=== PATIENT | female | born 1990 | race Two or more races ===

== ENCOUNTER 2018-11-26 06:35 | Emergency (ER) | payer OTHER ==
[2018-11-26 06:59] VITALS: BMI 24.2
--- NOTE | 2018-11-26 07:12 | PDOC ---
Attending Attestation - Resident Resident Name: Heladio Harmon - ED Attending Attestation I have performed the following: I have examined & evaluated the patient, The case was reviewed & discussed with the resident, I agree w/resident's findings & plan, Exceptions are as noted - HPI HPI: 11/26/18 08:18 28yo at around 13 weeks gestation with an episode of vaginal bleeding this AM. Pt follows with [facility] - had ultrasound on 11/15. Pt denies abd cramping. No dysuria. Passed a small clot this AM. No further bleeding. No f/c. No other complaints. - Physicial Exam PE: 11/26/18 08:19 Gen: aaox3, sinhala speaking female HearT: +s1s2 reg lungs: cta b/l abd: soft, nt/nd +bs ext: no c/c/e - Medical Decision Making 11/26/18 08:19 a/p: 28yo female at 13 weeks gestation with vaginal bleeding x 1 episode today -will send labs -pelvic per the resident, os closed, scant blood in vault, no active bleeding -pt without abd cramping -no active bleeding now -pt [facility] with [facility] -will monitor and reassess -POCUS shows iup with movement, fhr 152
--- NOTE | 2018-11-26 08:11 | PDOC ---
History of Present Illness - General Chief Complaint: Vaginal Bleeding Stated Complaint: 13 WEEKS PREG AND BLEEDING Time Seen by Provider: 11/26/18 07:12 History Source: Patient, Booker Used (ROKT Telephone Booker) Exam Limitations: Language Barrier - History of Present Illness Initial Comments: HPI: 28 y/o female presenting to [facility] ER complaining of spontaneous, non painful vaginal bleeding at approx. 4 am this morning in setting of known 13 weeks . States she observed clotted material in toilet while urinating and subsequently spotted for a short time. Has not required a pad change. Spotting stopped prior to arrival. Denies chest pain, SOB, abd pain, or back pain. Following with [facility] for routine care. Reports normal U/S in recent past. Reports she feels safe in her living situation and in her relationship. Denies concern for personal safety or wellbeing. is currently in [place]. OBGYN Hx: - - LMP August 22 or 2018 - Denies h/o of STD - Denies h/o of abnormal PAP smear, last in August 2018 Medical Hx: - Pt denies past medical history. - Currently taking prescription iron pills. Surgical Hx: - Pt denies past surgical history. Review of Systems: In addition to that documented in the HPI above, the additional ROS was obtained : Constitutional: Denies fevers or chills Head: Denies vision changes ENMT: Denies sore throat CV: Denies chest pain Resp: Denies SOB GI: Denies vomiting, diarrhea, abdominal pain, or lower back pain : Denies painful urination MSK: Denies recent trauma Skin: Denies new rashes Neuro: Denies new numbness or tingling or weakness Endocrine: Denies polyuria Heme: Denies bleeding or bruising Physical Examination: Constitutional: Well-developed, well-nourished adult female in no acute distress or obvious discomfort. Found sitting upright on edge of ARTIST'S REPRESENTATIVE table. Alert and oriented x4. Answered all questions appropriately and completely. Speech was non-labored, non-pressured. Head: Normocephalic. No obvious external signs of trauma. Cardiovascular / Chest: Regular rate and regular rhythm. No murmur, rubs, clicks , or gallops. Peripheral pulses: radial pulses full. No pretibial edema. Respiratory: Breathing unlabored. Equal chest rise and fall. Clear to auscultation bilaterally. No stridor, no wheezing, no rhonchi. Gastrointestinal: abdomen is soft, non-tender, non-distended. Neuro: Alert and oriented. Moving all four extremities spontaneously. Gait normal. Skin: Warm, dry, and intact. : No R or L CVA tenderness. Psych: Affect: appropriate. Mood: normal. Female Pelvic: External genitalia unremarkable. Speculum exam with small amount of clotted material but no active bleeding. Vaginal wall mucosa is unremarkable. Cervix visualized and is unremarkable (closed in appearance without any protruding material). Bimanual exam without cervical motion tenderness, adnexal tenderness or any masses appreciated. RN chaperoned exam. MDM: *Reviewed vital signs, nursing notes, and prior visit documentation (if available). 28 y/o female presenting for small amount of vaginal bleeding that resolved prior to arrival. Reportedly normal course today. Following with OBGYN regularly. Afebrile. Vitals unremarkable for hypotension or tachycardia. Physical exam as described above. POCUS TA exam reassuring IUP with spontaneous movement and heart rate. CBC unremarkable for anemia. CMP unremarkable for significant electrolyte derangement. Beta quant obtained and provided to pt for trending. UA unremarkable for pyuria, nitrites, or leukocyte esterase. Suspect likely physiologic bleeding in . Blood type Rh positive. Rhogam not indicated. Discussed imaging and laboratory results with pt. Answered all questions. Provided return precautions. Pt expressed verbal understanding and agreement with plan to discharge home with outpatient follow up. Provided copies of today s results. Heladio Harmon M.D., PGY2 Emergency Medicine Resident Past History - Past Medical History Allergies/Adverse Reactions: Allergies Allergy/AdvReac Type Severity Reaction Status Date / Time No Known Allergies Allergy Verified 11/26/18 06:59 - Suicide/Smoking/Psychosocial Hx Smoking History: Never smoked *Physical Exam - Vital Signs Last Vital Signs Temp Pulse Resp BP Pulse Ox 98.3 F 81 18 104/66 96 11/26/18 06:54 11/26/18 06:54 11/26/18 06:54 11/26/18 06:54 11/26/18 06:54 ED Treatment Course - LABORATORY CBC & Chemistry Diagram: 11/26/18 07:51 11/26/18 07:51 *DC/Admit/Observation/Transfer Diagnosis at time of Disposition: Bleeding in early - Discharge Dispostion Disposition: HOME Condition at time of disposition: Improved Decision to Admit order: No - Referrals Referrals: Lorna Vaughan DO [Staff Physician] - - Patient Instructions Printed Discharge Instructions: DI for Vaginal Bleeding During Additional Instructions: Hoy te vieron por sangrado vaginal minerva el embarazo. La ecografa de calvert embarazo fue normal. Calvert beb se estaba moviendo y devon un buen latido del corazn. El sangrado fue probablemente maryjane parte normal del embarazo. Debera roz a calvert gineclogo para un examen ms detenido en los prximos 1-2 hubbard. Tendr que llamar para hacer maryjane eliecer. El nmero est incluido en katie paquete. He adjuntado copias de los resultados de hoy al paquete. Llvelo con usted a la eliecer para que calvert mdico pueda revisarlos. Vaya al departamento de emergencias ms cercano si calvert afeccin empeora o si be que necesita maryjane evaluacin de emergencia adicional. You were seen today for vaginal bleeding while . The ultrasound of your was normal. Your baby was moving and had a good heart beat. The bleeding was likely a normal part of . You should see your OBGYN for further examination in the next 1-2 days. You will need to call to make an appointment. The number is included in this packet. I have attached copies of todays results to the packet. Take it with you to the appointment so your doctor can review them. Go to the nearest emergency department if your condition worsens or you feel like you need additional emergency evaluation. Print Language: KINYARWANDA - Post Discharge Activity Forms/Work/School Notes: Back to Work
[2018-11-26 08:26] LABS: BASO % 0.1 % (0-2.0); EOS % 1.7 % (0-4.5); HEMATOCRIT 33.3 % (32.4-45.2); HEMOGLOBIN 11.1 GM/dL (10.7-15.3); LYMPH % 14.2 % (8-40); MCH 29.4 pg (25.7-33.7); MCHC 33.4 g/dl (32.0-36.0); MEAN CELL VOLUME 87.9 fl (80-96); MEAN PLT VOLUME 7.6 fl (7.5-11.1); MONO % 7.6 % (3.8-10.2); NEUT % 76.4 % (42.8-82.8); PLATELET COUNT 309 K/MM3 (134-434); RBC 3.79 M/mm3 (3.60-5.2); RDW 13.6 % (11.6-15.6); WHITE BLOOD COUNT 8.5 K/mm3 (4.0-10.0)
[2018-11-26 08:40] LABS: EPI CELLS 1.9 /HPF (0-5/HPF); HYALINE CASTS 0 /lpf (0-8); URINE APPEARANCE CLEAR; URINE BACTERIA 140.6 /hpf (NEGATIVE); URINE BILIRUBIN NEGATIVE (NEGATIVE); URINE COLOR YELLOW; URINE GLUCOSE (UA) NEGATIVE (NEGATIVE); URINE KETONE NEGATIVE (NEGATIVE); URINE LEUK ESTERASE NEGATIVE (NEGATIVE); URINE NITRITE NEGATIVE (NEGATIVE); URINE PROTEIN NEGATIVE (NEGATIVE); URINE RBC 0 /hpf (0-4); URINE UROBILINOGEN 0.2 mg/dL (0.2-1.0); URINE WBC 2 /hpf (0-5)
[2018-11-26 08:45] LABS: ALBUMIN 3.5 g/dl (3.4-5.0); BILIRUBIN,TOTAL 0.3 mg/dL (0.2-1); CREATININE 0.6 mg/dL (0.55-1.3); POTASSIUM 3.7 mmol/L (3.5-5.1); TOT PROT 7.4 g/dl (6.4-8.2)
[2018-11-26 10:06] VITALS: BP 101/72; PULSE 82; TEMP 98.1
== END 2018-11-26 09:50 | disposition home or self-care (01) ==
LOC: JER 06:35
PROC: BY49ZZZ Ultrasonography of First Trimester, Single Fetus (ICD-10-PCS; principal; 2018-11-26)
DX: O26.891 Other specified pregnancy related conditions, first trimester (principal); O20.8 Other hemorrhage in early pregnancy; Z3A.13 13 weeks gestation of pregnancy
CPT/HCPCS: 36415; 76801-TC; 76815; 80053; 81003; 84702; 85025; 86850; 86900; 86901; 87086; 99283-25

== ENCOUNTER 2018-12-01 23:30 | Emergency (ER) | payer OTHER ==
[2018-12-01 23:39] VITALS: BMI 24.2
--- NOTE | 2018-12-02 00:28 | PDOC ---
History of Present Illness - General Chief Complaint: Vaginal Bleeding Stated Complaint: 14 WEEKS ABDOMINAL PAIN Time Seen by Provider: 12/01/18 23:47 - History of Present Illness Initial Comments: 12/02/18 00:28 28 y/o F currently at 14 weeks presenting to ED with one day of vaginal bleeding. Pt was seen by her OB whereby an U/S revealed anhydramnios. Pt. was informed products of conception would pass naturally and to come to the ED if she experienced any pain. She is experiencing lower abdominal cramping pain which is non-radiating and a 5/10 in severity. The bleeding is accompanied by mucus like discharge. She has passed several clots as well. She denies any fevers, chills, diaphoresis, dysuria, hematuria or cva tenderness. 12/02/18 02:12 12/03/18 23:45 Past History - Past Medical History Allergies/Adverse Reactions: Allergies Allergy/AdvReac Type Severity Reaction Status Date / Time No Known Allergies Allergy Verified 12/01/18 23:38 Home Medications: Ambulatory Orders Methylergonovine Maleate [Methergine] 0.2 mg PO TID #9 tablet 12/02/18 Anemia: Yes COPD: No - Reproductive History (#): 0 Para: 0 Therapeutic (s) & number: No Spontaneous : 0 - Suicide/Smoking/Psychosocial Hx Smoking History: Never smoked Review of Systems - Review of Systems All Other Systems: Reviewed and Negative *Physical Exam - Vital Signs Last Vital Signs Temp Pulse Resp BP Pulse Ox 98.5 F 103 H 18 116/74 99 12/01/18 23:36 12/01/18 23:36 12/01/18 23:36 12/01/18 23:36 12/01/18 23:36 - Physical Exam General Appearance: Yes: Nourished, Appropriately Dressed, Apparent Distress HEENT: positive: EOMI, Normal Voice. negative: Scleral Icterus (R), Scleral Icterus (L) Neck: positive: Trachea midline, Supple Respiratory/Chest: positive: Lungs Clear, Normal Breath Sounds. negative: Chest Tender, Respiratory Distress, Labored Respiration, Crackles, Rales, Wheezing Cardiovascular: positive: Regular Rhythm, Regular Rate, S1, S2. negative: Edema , JVD, Murmur Female Pelvic Exam: positive: vaginal bleeding, other (cervical os open. products of conception already expelled. As well as placenta and several blood clots. ) Gastrointestinal/Abdominal: positive: Normal Bowel Sounds, Soft, Guarding, Tenderness, Other (suprapubic guarding and tenderness) Musculoskeletal: positive: Normal Inspection. negative: CVA Tenderness Extremity: positive: Normal Capillary Refill, Normal Inspection, Normal Range of Motion Integumentary: positive: Normal Color, Dry, Warm. negative: Cyanotic, Clammy, Diaphoresis Neurologic: positive: Fully Oriented, Alert, Normal Mood/Affect, Normal Response ED Treatment Course - LABORATORY CBC & Chemistry Diagram: 12/02/18 01:00 12/02/18 01:42 Medical Decision Making - Medical Decision Making 12/02/18 01:31 28 y/o F currently at 14 weeks presenting to ED with one day of vaginal bleeding due to spontaneous miscarriage. -Products of conception collected and placed in formaldehyde. Sent to lab for evaluation -Pt. sent for TVUS for further evaluation - Pt. is O positive. Rhogam not needed. - quant Hcg, cbc, chem ordered -Tylenol 1000mg for pain. -Clinically the patient looks well, no indications for transfusion and no signs or symptoms of peritonitis. -TVUS - Enlarged uterus filled with echogenic material consistent with an in progress. Clinical correlation advised. -Pt discharged with instructions to follow up with SHEET HEATER within a few days. 12/02/18 01:46 12/03/18 23:51 *DC/Admit/Observation/Transfer Diagnosis at time of Disposition: Miscarriage - Discharge Dispostion Disposition: HOME Condition at time of disposition: Stable Decision to Admit order: No - Prescriptions Prescriptions: Methylergonovine Maleate [Methergine] 0.2 mg PO TID #9 tablet - Referrals Referrals: Lorna Vaughan DO [Staff Physician] - - Patient Instructions Printed Discharge Instructions: DI for Miscarriage Additional Instructions: You were seen in the ED for vaginal bleeding and a miscarriage. Products of conception were sent to the lab. Results will not be available for a few days. you can follow up with medical records for results from testing. Follow up with your Meat Soaker in the next 48 hrs (2days) for follow up Return to the Emergency Department if the following occur. -You have foul-smelling drainage or pus coming from your vagina. -You have heavy vaginal bleeding and soak 2 pads or more in an hour for 2 consecutive hours. -You have severe abdominal pain. -You feel like your heart is beating faster than normal. -You feel extremely weak or dizzy. Te vieron en el servicio de urgencias por sangrado vaginal y un aborto espontneo. Los productos de la concepcin fueron enviados al laboratorio. Los resultados no estarn disponibles por unos hubbard. Puede hacer un seguimiento con los registros mdicos para obtener los resultados de las pruebas. Lucian un seguimiento con bauer gineclogo en las prximas 48 horas (2 hubbard) para el seguimiento Regrese al Departamento de Emergencias si ocurre lo siguiente. -Tiene drenaje maloliente o pus proveniente de bauer vagina. Tiene sangrado vaginal abundante y remoja 2 almohadillas o ms en maryjane hora minerva 2 horas consecutivas. -Tiene dolor abdominal intenso. -Sientes que tu corazn late ms rpido de lo normal. -Te sientes extremadamente dbil o mareado. - Post Discharge Activity Forms/Work/School Notes: Back to Work
--- NOTE | 2018-12-02 01:05 | PDOC ---
Documentation entered by Vanessa Barnes SCRIBE, acting as scribe for Shruti Vasquez DO. Shruti Vasquez DO: This documentation has been prepared by the Molly sommers Xhesika, SCRIBE, under my direction and personally reviewed by me in its entirety. I confirm that the documentation accurately reflects all work, treatment, procedures, and medical decision making performed by me. Attending Attestation - Resident Resident Name: Donavan Bales - ED Attending Attestation I have performed the following: I have examined & evaluated the patient, The case was reviewed & discussed with the resident, I agree w/resident's findings & plan, Exceptions are as noted - HPI HPI: 12/02/18 01:09 The patient is a 28 year old female, , currently 14 weeks with no significant PMH of who presents to the emergency department with 1 day of vaginal bleeding accompanied by mucus discharge and clots. Patient notes she saw her ENGINEER SYSTEMS and her US showed anhydramnios, however, she was advised to come to the ED if she experienced any pain. Patient notes she is endorsing abdominal cramping, 5/10 in severity. The patient denies chest pain, shortness of breath, headache and dizziness. Denies fever, chills, cough, nausea, vomiting, diarrhea and constipation. Denies dysuria, frequency, urgency and hematuria. Allergies: NKDA - Physicial Exam PE: 12/02/18 01:10 GENERAL: Awake, alert, and fully oriented. (+) tearful HEAD: No signs of trauma EYES: PERRLA, EOMI, sclera anicteric, conjunctiva clear ENT: Auricles normal inspection, hearing grossly normal, nares patent, oropharynx clear without exudates. Moist mucosa NECK: Normal ROM, supple, no lymphadenopathy, JVD, or masses LUNGS: Breath sounds equal, clear to auscultation bilaterally. No wheezes, and no crackles HEART: Regular rate and rhythm, normal S1 and S2, no murmurs, rubs or gallops ABDOMEN:(+) suprabupic tenderness. Soft, normoactive bowel sounds. No guarding , no rebound. No masses : (+) actively bleeding. (+) placenta passed during vaginal exam. (+) cervix is opened 2 fingertips, bimanual exam. EXTREMITIES: Normal range of motion, no edema. No clubbing or cyanosis. No cords, erythema, or tenderness NEUROLOGICAL: Cranial nerves II through XII grossly intact. SKIN: Warm, Dry, normal turgor, no rashes or lesions noted. - Medical Decision Making 12/02/18 01:00 I, Dr. Shruti Vasquez, DO, attest that this document has been prepared under my direction and personally reviewed by me in its entirety. I further attest, that it accurately reflects all work, treatment, procedures and medical decision -making performed by me. 12/02/18 01:03 a/p: 28yo female at 14 weeks gestation -told by her UNIVERSITY ADMINISTRATIVE ASSISTANT today that there was no fhr today -pt with vaginal bleeding since earlier this week -pt started to bleed around 4p -pt states lower abd cramping -no lightheaded or dizziness -pt passed poc during vaginal exam - these were collected and will be sent to the lab for cytology -large clots passed -will send labs, beta, tvus -O+ on prior type and screen 3 days ago -will monitor and reassess 12/02/18 01:56 hgb stable chem pending/hcg pending tvus pending 12/02/18 02:12 pt signed out pending beta hcg and tvus findings tylenol given for pain
[2018-12-02 01:24] LABS: HEMOGLOBIN 10.9 GM/dL (10.7-15.3); MEAN CELL VOLUME 87.9 fl (80-96); MONO % 9.9 % (3.8-10.2)
[2018-12-02 01:30] LABS: BASO % 0.6 % (0-2.0); EOS % 1.7 % (0-4.5); HEMATOCRIT 32.9 % (32.4-45.2); LYMPH % 16.2 % (8-40); MCH 29.2 pg (25.7-33.7); MCHC 33.2 g/dl (32.0-36.0); NEUT % 71.6 % (42.8-82.8); PLATELET COUNT 284 K/MM3 (134-434); RBC 3.74 M/mm3 (3.60-5.2); RDW 13.5 % (11.6-15.6); WHITE BLOOD COUNT 9.8 K/mm3 (4.0-10.0)
[2018-12-02] MEDS ORDERED: ACETAMINOPHEN 1000 MG/100 ML VIAL (NON FORMULARY) IVPB ONE (01:45)
[2018-12-02] MEDS ORDERED: ACETAMINOPHEN INJECTION 100 ML IVPB ONE (02:05)
--- NOTE | 2018-12-02 02:11 | PDOC ---
*Physical Exam - Vital Signs Last Vital Signs Temp Pulse Resp BP Pulse Ox 98.5 F 103 H 18 116/74 99 12/01/18 23:36 12/01/18 23:36 12/01/18 23:36 12/01/18 23:36 12/01/18 23:36 ED Treatment Course - LABORATORY CBC & Chemistry Diagram: 12/02/18 01:00 12/02/18 01:42 - ADDITIONAL ORDERS Additional order review: Laboratory Results 12/02/18 01:00 Sodium Cancelled Potassium Cancelled Chloride Cancelled Carbon Dioxide Cancelled Anion Gap Cancelled BUN Cancelled Creatinine Cancelled Est GFR (CKD-EPI)AfAm Cancelled Est GFR (CKD-EPI)NonAf Cancelled Random Glucose Cancelled Calcium Cancelled Total Bilirubin Cancelled AST Cancelled ALT Cancelled Alkaline Phosphatase Cancelled Total Protein Cancelled Albumin Cancelled Beta HCG, Quant Cancelled 12/02/18 01:00 RBC 3.74 MCV 87.9 MCHC 33.2 RDW 13.5 MPV 8.0 Neutrophils % 71.6 Lymphocytes % 16.2 Monocytes % 9.9 Eosinophils % 1.7 Basophils % 0.6 D Medical Decision Making - Medical Decision Making 12/02/18 02:10 Received sign-out from Dr. Bales. -F/u TVUS read -F/u CBC and Quant HCG -Anticipated Dispo: home 12/02/18 03:07 -TVUS suggestive of retained products of conception -Pt with several large clots over past hour, no longer soaking pads -Repeating vitals SPB 94, HR 70s Dispo: home with f/u at SCALE MECHANIC in 24-48 hours REturn precautions discussed, patient verbalized understanding *DC/Admit/Observation/Transfer Diagnosis at time of Disposition: Miscarriage - Discharge Dispostion Disposition: HOME Condition at time of disposition: Stable Decision to Admit order: No - Referrals Referrals: Lorna Vaughan DO [Staff Physician] - - Patient Instructions Printed Discharge Instructions: DI for Miscarriage Additional Instructions: You were seen in the ED for vaginal bleeding and a miscarriage. Products of conception were sent to the lab. Results will not be available for a few days. you can follow up with medical records for results from testing. Follow up with your Moth Proofer in the next 48 hrs (2days) for follow up Return to the Emergency Department if the following occur. -You have foul-smelling drainage or pus coming from your vagina. -You have heavy vaginal bleeding and soak 2 pads or more in an hour for 2 consecutive hours. -You have severe abdominal pain. -You feel like your heart is beating faster than normal. -You feel extremely weak or dizzy. Te vieron en el servicio de urgencias por sangrado vaginal y un aborto espontneo. Los productos de la concepcin fueron enviados al laboratorio. Los resultados no estarn disponibles por unos hubbard. Puede hacer un seguimiento con los registros mdicos para obtener los resultados de las pruebas. Lucian un seguimiento con bauer gineclogo en las prximas 48 horas (2 hubbard) para el seguimiento Regrese al Departamento de Emergencias si ocurre lo siguiente. -Tiene drenaje maloliente o pus proveniente de bauer vagina. Tiene sangrado vaginal abundante y remoja 2 almohadillas o ms en maryjane hora minerva 2 horas consecutivas. -Tiene dolor abdominal intenso. -Sientes que tu corazn late ms rpido de lo normal. -Te sientes extremadamente dbil o mareado. - Post Discharge Activity
[2018-12-02 02:31] LABS: ALBUMIN 3.2 g/dl (3.4-5.0); BILIRUBIN,TOTAL 0.3 mg/dL (0.2-1); BLOOD UREA NITROGEN 5.2 mg/dL (7-18); CALCIUM 8.6 mg/dL (8.5-10.1); CREATININE 0.5 mg/dL (0.55-1.3); POTASSIUM 4.2 mmol/L (3.5-5.1)
[2018-12-02 03:15] VITALS: BP 94/65; PULSE 78; TEMP 98.4
--- NOTE | 2018-12-02 03:36 | PDOC ---
*Physical Exam - Vital Signs Last Vital Signs Temp Pulse Resp BP Pulse Ox 98.4 F 78 18 94/65 99 12/02/18 03:14 12/02/18 03:14 12/02/18 03:14 12/02/18 03:14 12/02/18 03:14 ED Treatment Course - LABORATORY CBC & Chemistry Diagram: 12/02/18 01:00 12/02/18 01:42 - ADDITIONAL ORDERS Additional order review: Laboratory Results 12/02/18 12/02/18 01:42 01:00 Sodium 140 Cancelled Potassium 4.2 Cancelled Chloride 108 H Cancelled Carbon Dioxide 24 Cancelled Anion Gap 7 L Cancelled BUN 5.2 L Cancelled Creatinine 0.5 L Cancelled Est GFR (CKD-EPI)AfAm 152.65 Cancelled Est GFR (CKD-EPI)NonAf 131.71 Cancelled Random Glucose 105 Cancelled Calcium 8.6 Cancelled Total Bilirubin 0.3 Cancelled AST 19 Cancelled ALT 22 Cancelled Alkaline Phosphatase 77 Cancelled Total Protein 7.0 Cancelled Albumin 3.2 L Cancelled Beta HCG, Quant 06231.4 Cancelled 12/02/18 01:00 RBC 3.74 MCV 87.9 MCHC 33.2 RDW 13.5 MPV 8.0 Neutrophils % 71.6 Lymphocytes % 16.2 Monocytes % 9.9 Eosinophils % 1.7 Basophils % 0.6 D - Medications Given in the ED: ED Medications Discontinued Medications Generic Name Dose Route Start Last Admin Trade Name Freq PRN Reason Stop Dose Admin Acetaminophen 1,000 mg 12/02/18 01:45 12/02/18 02:15 Ofirmev Injection - IVPB 12/02/18 01:46 1,000 mg ONCE ONE Administration Medical Decision Making - Medical Decision Making 12/02/18 03:32 TVUS with possible RPOC VS stable Bleeding has stopped Exam inconsistent with infection, endometritis, no foul discharge Expectant management of RPOC Close CAREER RESOURCE SPECIALIST f/u 48h *DC/Admit/Observation/Transfer Diagnosis at time of Disposition: Miscarriage - Discharge Dispostion Disposition: HOME Condition at time of disposition: Stable - Referrals Referrals: Lorna Vaughan DO [Staff Physician] - - Patient Instructions Printed Discharge Instructions: DI for Miscarriage Additional Instructions: You were seen in the ED for vaginal bleeding and a miscarriage. Products of conception were sent to the lab. Results will not be available for a few days. you can follow up with medical records for results from testing. Follow up with your Second Crusher in the next 48 hrs (2days) for follow up Return to the Emergency Department if the following occur. -You have foul-smelling drainage or pus coming from your vagina. -You have heavy vaginal bleeding and soak 2 pads or more in an hour for 2 consecutive hours. -You have severe abdominal pain. -You feel like your heart is beating faster than normal. -You feel extremely weak or dizzy. Te vieron en el servicio de urgencias por sangrado vaginal y un aborto espontneo. Los productos de la concepcin fueron enviados al laboratorio. Los resultados no estarn disponibles por unos hubbard. Puede hacer un seguimiento con los registros mdicos para obtener los resultados de las pruebas. Lucian un seguimiento con bauer gineclogo en las prximas 48 horas (2 hubbard) para el seguimiento Regrese al Departamento de Emergencias si ocurre lo siguiente. -Tiene drenaje maloliente o pus proveniente de bauer vagina. Tiene sangrado vaginal abundante y remoja 2 almohadillas o ms en maryjane hora minerva 2 horas consecutivas. -Tiene dolor abdominal intenso. -Sientes que tu corazn late ms rpido de lo normal. -Te sientes extremadamente dbil o mareado. - Post Discharge Activity
[2018-12-02 12:54] LABS: ANISOCYTOSIS 0; MACROCYTOSIS 0; PLATELET ESTIMATE NORMAL
== END 2018-12-02 03:51 | disposition home or self-care (01) ==
LOC: JER 23:30
PROC: 3E033NZ Introduction of Analgesics, Hypnotics, Sedatives into Peripheral Vein, Percutaneous Approach (ICD-10-PCS; principal; 2018-12-01)
DX: O03.9 Complete or unspecified spontaneous abortion without complication (principal); Z3A.14 14 weeks gestation of pregnancy
CPT/HCPCS: 36415; 76830-TC; 80053; 84702; 85025; 99283-25; J0131

== ENCOUNTER 2018-12-02 05:14 | Emergency (ER) | payer OTHER ==
[2018-12-02 05:30] VITALS: TEMP 99.4; BMI 24.2
[2018-12-02] MEDS ORDERED: ONDANSETRON 4 MG/2 ML VIAL IVPUSH ONE (06:10)
[2018-12-02] MEDS ORDERED: SODIUM CHLORIDE 1,000 ML IV STA (06:10)
--- NOTE | 2018-12-02 06:11 | PDOC ---
Attending Attestation - Resident Resident Name: Marco Verdugo - ED Attending Attestation I have performed the following: I have examined & evaluated the patient, The case was reviewed & discussed with the resident, I agree w/resident's findings & plan, Exceptions are as noted - HPI HPI: 12/02/18 06:15 28F 14w preg was seen earlier in the evening for vaginal bleeding in context of . TVUS showed RPOC but bleeding had resolved, no signs/ symptoms of infection, vitals signs normal. PT was discharged with expectant management of RPOC, given strict return precautions. After discharge, pt states she began bleeding again heavily, noting associated light headedness. - Physicial Exam PE: 12/02/18 07:07 Agree with exam as documented by resident Copious BRB and clots in diaper - Medical Decision Making 12/02/18 06:17 Patient was seen earlier in the night and evaluated for VB in context of , TVUS showed RPOC DC'ed with expectant management After dc pt had recurrence of bleeding, felt lightheaded and returned to ED Called patient's [facility]VEL REGISTERED NURSE ONCOLOGY spoke with covering physician Dr. Padilla She recommended repeat CBC, monitor vitals, give dose of methergine If no anemia, remains hemodynamically stable, can be sent to clinic which opens at 9am If any derangement please re-contact [facility] NURSE ONCOLOG[facility] for final dispo
[2018-12-02] MEDS ORDERED: ONDANSETRON 4 MG/2 ML VIAL ONE (06:14)
--- NOTE | 2018-12-02 06:14 | PDOC ---
History of Present Illness - General Chief Complaint: Syncope/Near Syncope Stated Complaint: ABDOMINAL PAIN,BLEEDING History Source: Patient, Family Exam Limitations: No Limitations - History of Present Illness Initial Comments: 12/02/18 06:09 28yo woman, recently seen in the department with spontaneous with open cervical os and TVUS suggestive of retained products of conception. Discharged home with return precautions. Reportedly began to feel lightheaded and "like she was going to pass out" shortly after leaving and decided to return to the department. Passed some additional clot in the interim. HDS on arrival. PMH/PSH/Meds per chart NKDA Past History - Travel Traveled outside of the country in the last 30 days: No Close contact w/someone who was outside of country & ill: No - Past Medical History Allergies/Adverse Reactions: Allergies Allergy/AdvReac Type Severity Reaction Status Date / Time No Known Allergies Allergy Verified 12/01/18 23:38 Home Medications: Ambulatory Orders Methylergonovine Maleate [Methergine] 0.2 mg PO TID #9 tablet 12/02/18 Anemia: Yes COPD: No - Reproductive History (#): 1 Para: 0 Therapeutic (s) & number: No Spontaneous : 1 - Suicide/Smoking/Psychosocial Hx Smoking History: Never smoked Have you smoked in the past 12 months: No Information on smoking cessation initiated: No Hx Alcohol Use: No Drug/Substance Use Hx: No Review of Systems - Review of Systems Able to Perform ROS?: Yes Is the patient limited Tongan proficient: No Constitutional: Yes: See HPI HEENTM: No: Symptoms Reported Respiratory: No: Symptoms reported Cardiac (ROS): Yes: See HPI, Lightheadedness ABD/GI: No: Symptoms Reported : No: Symptoms Reported Musculoskeletal: No: Symptoms Reported Integumentary: No: Symptoms Reported Neurological: No: Symptoms reported *Physical Exam - Vital Signs Last Vital Signs Temp Pulse Resp BP Pulse Ox 99.4 F 88 20 104/62 100 12/02/18 05:27 12/02/18 05:27 12/02/18 05:27 12/02/18 05:27 12/02/18 05:27 - Physical Exam General Appearance: Yes: Nourished, Appropriately Dressed. No: Apparent Distress HEENT: positive: Normal ENT Inspection, Normal Voice, Symmetrical. negative: Pale Conjunctivae, Scleral Icterus (R), Scleral Icterus (L) Neck: positive: Trachea midline, Normal Thyroid, Supple. negative: Tender Respiratory/Chest: positive: Lungs Clear, Normal Breath Sounds. negative: Chest Tender, Respiratory Distress, Accessory Muscle Use Cardiovascular: positive: Regular Rhythm, Regular Rate, S1, S2 Gastrointestinal/Abdominal: positive: Normal Bowel Sounds, Soft. negative: Tender Neurologic: positive: information writer II-XII NML intact, Alert, Normal Response ED Treatment Course - LABORATORY CBC & Chemistry Diagram: 12/02/18 06:21 Medical Decision Making - Medical Decision Making 12/02/18 06:21 28yo woman presenting for lightheadedness in the setting of spontaneous with possible retained products of conception on TVUS in the department overnight. Hypodermically stable. Expected progression of blood clot. Concern for blood loss. Repeat CBC, zofran for nausea, IVF bolus. Reach out to OBGYN. 12/02/18 06:[address] Padilla on the phone. She recommended reiterating the counseling provided, double check HCT, enure stable vitals, give IM Methergine then discharge with 3 days TID Methergine and advise patient that the office is open at 9AM today. -CBC pending -IVF given -BP stable -Will CTM vitals -0.2mg IM Metherergine ordered 12/02/18 07:08 -Reiterated return precautions as well as expectations with the pt -Signed out to Dr. Fox *DC/Admit/Observation/Transfer Diagnosis at time of Disposition: Miscarriage - Discharge Dispostion Disposition: HOME Condition at time of disposition: Good Decision to Admit order: No - Prescriptions Prescriptions: Methylergonovine Maleate [Methergine] 0.2 mg PO TID #9 tablet - Referrals Referrals: Lorna Vaughan DO [Staff Physician] - - Patient Instructions Printed Discharge Instructions: DI for Syncope in Adults (Fainting) - Post Discharge Activity
[2018-12-02] MEDS ORDERED: METHYLERGONOVINE MALEATE 0.2 MG/1 ML AMP IM ONE (06:41)
[2018-12-02 06:52] LABS: BASO % 0.2 % (0-2.0); MCH 29.6 pg (25.7-33.7); MCHC 33.8 g/dl (32.0-36.0)
--- NOTE | 2018-12-02 07:15 | PDOC ---
*Physical Exam - Vital Signs Last Vital Signs Temp Pulse Resp BP Pulse Ox 99.4 F 88 20 104/62 100 12/02/18 05:27 12/02/18 05:27 12/02/18 05:27 12/02/18 05:27 12/02/18 05:27 ED Treatment Course - LABORATORY CBC & Chemistry Diagram: 12/02/18 06:21 - Medications Given in the ED: ED Medications Discontinued Medications Generic Name Dose Route Start Last Admin Trade Name Kasia PRN Reason Stop Dose Admin Sodium Chloride 1,000 mls @ 1,000 mls/hr 12/02/18 06:10 12/02/18 06:25 Normal Saline - IV 12/02/18 07:09 1,000 mls/hr ASDIR STA Administration Ondansetron HCl 4 mg 12/02/18 06:10 12/02/18 06:24 Zofran Injection IVPUSH 12/02/18 06:11 4 mg NOW ONE Administration Medical Decision Making - Medical Decision Making Pt was signed out to me by resident Dr. Verdugo, who explained the presentation , ED course, any pending results, and needed interventions. Pending results include CBC to monitor H/H from last night, as pt was bleeding. Pt is currently stable and is lying comfortably. She was provided with methergine (called from the pharmacy), and has a clinic appointment with Dr. Vaughan/Valerie at 9am for immediate follow-up. 12/02/18 07:13 H/H stable. Provided 2 mg IV morphine and 650 mg PO tylenol for cramping pain. Pt will be discharged to immediate f/u with OB. Pt with mild vaginal bleeding but no large clots or light-headedness at this time. 12/02/18 08:41 *DC/Admit/Observation/Transfer Diagnosis at time of Disposition: Miscarriage - Discharge Dispostion Disposition: HOME Condition at time of disposition: Good Decision to Admit order: No - Prescriptions Prescriptions: Methylergonovine Maleate [Methergine] 0.2 mg PO TID #9 tablet - Referrals Referrals: Lorna Vaughan DO [Staff Physician] - - Patient Instructions Printed Discharge Instructions: DI for Syncope in Adults (Fainting), DI for Miscarriage Additional Instructions: You were seen in the ER today for vaginal bleeding. Please follow-up with your OB doctor immediately following this visit. Please return to the ER if you have any worsening pain, development of fevers or chills, loss of consciousness, inability to tolerate food or fluids, or any other concerns. I have sent medications to your pharmacy. Please take these medications as prescribed. - Post Discharge Activity
[2018-12-02 07:17] LABS: EOS % 0.7 % (0-4.5); HEMATOCRIT 29.7 % (32.4-45.2); LYMPH % 10.9 % (8-40); MEAN CELL VOLUME 87.4 fl (80-96); MONO % 6.2 % (3.8-10.2); RDW 13.4 % (11.6-15.6); WHITE BLOOD COUNT 10.8 K/mm3 (4.0-10.0)
[2018-12-02] MEDS ORDERED: ACETAMINOPHEN 325 MG TABLET (FP) PO ONE (08:14)
[2018-12-02 08:38] LABS: PLATELET COUNT 303 K/MM3 (134-434)
[2018-12-02] MEDS ORDERED: morphine CARPU-JECT 2 MG/1 ML DISP.SYRIN IVPUSH ONE (08:39)
[2018-12-02] MEDS ORDERED: MORPHINE SULFATE 2 MG/ML VIAL ONE (08:47)
[2018-12-02 10:12] VITALS: BP 106/72; PULSE 76
[2018-12-02 12:03] LABS: ANISOCYTOSIS 0; MACROCYTOSIS 0; PLATELET ESTIMATE NORMAL
== END 2018-12-02 09:11 | disposition home or self-care (01) ==
LOC: JER 05:14
PROC: 3E0337Z Introduction of Electrolytic and Water Balance Substance into Peripheral Vein, Percutaneous Approach (ICD-10-PCS; principal; 2018-12-02)
PROC: 3E033NZ Introduction of Analgesics, Hypnotics, Sedatives into Peripheral Vein, Percutaneous Approach (ICD-10-PCS; 2018-12-02)
DX: O03.39 Incomplete spontaneous abortion with other complications (principal)
CPT/HCPCS: 36415; 85025; 96361; 96374; 99282-25; J7030

== ENCOUNTER 2018-12-12 06:23 | Day surgery (SDC) | payer OTHER ==
[2018-12-09 19:40] VITALS: BMI 27.1
[2018-12-12] MEDS ORDERED: MIDAZOLAM HCL 2 MG/2 ML SINGLE DOSE VIAL ONE (07:59)
[2018-12-12] MEDS ORDERED: PROPOFOL 20 ML ONE (07:59)
[2018-12-12] MEDS ORDERED: SUCCINYLCHOLINE CHLORIDE 200 MG/10 ML SYRINGE ONE (08:00)
[2018-12-12] MEDS ORDERED: ePHEDrine SULFATE 50 MG/1 ML AMPULE ONE (08:00)
--- NOTE | 2018-12-12 08:26 | HP ---
History & Physical Update - History History: No Change - Physical Physical: No Change - Assessment Assessment: No Change - Plan Plan: No Change (No change in HP)
[2018-12-12] MEDS ORDERED: IBUPROFEN 400 MG TABLET (FP) PO PRN (08:27)
[2018-12-12] MEDS ORDERED: ACETAMINOPHEN 325 MG TABLET (FP) PO PRN (08:27)
--- NOTE | 2018-12-12 08:28 | OP ---
Operative Note - Note: Operative Date: 12/12/18 Pre-Operative Diagnosis: Missed Operation: Suction DC Post-Operative Diagnosis: Same as Pre-op Anesthesia: General Operative Report Dictated: Yes
[2018-12-12] MEDS ORDERED: DEXAMETHASONE SOD PHOSPHATE 4 MG/1 ML VIAL ONE (08:32)
[2018-12-12] MEDS ORDERED: KETOROLAC TROMETHAMINE 30 MG/1 ML VIAL ONE (08:32)
[2018-12-12] MEDS ORDERED: oxyCODONE HCL 5 MG TABLET PO PRN (09:03)
[2018-12-12] MEDS ORDERED: PROMETHAZINE HCL 25 MG/1 ML VIAL IVPB PRN (09:03)
[2018-12-12 10:23] VITALS: TEMP 98.1
[2018-12-12 12:51] VITALS: BP 98/68; PULSE 90
--- NOTE | 2018-12-12 12:51 | OP ---
DATE OF OPERATION: 12/12/2018 PREOPERATIVE DIAGNOSIS: Missed . OPERATION: Suction dilation and curettage. POSTOPERATIVE DIAGNOSIS: Missed . SURGEON: Destiny Padilla MD ANESTHESIA: General. ANESTHESIOLOGIST: Arben Gtz MD ESTIMATED BLOOD LOSS: 25 mL. PROCEDURE: The patient was taken to the operating room, placed in dorsal lithotomy position, prepped and draped in the usual sterile fashion. A timeout was performed in accordance with hospital regulation. A speculum was placed in the vagina, anterior lip of the cervix grasped with single-tooth tenaculum. The cervix was then dilated to accommodate the 8-cm curette. Suction D&C was then performed. All contents was then removed. Hemostasis was achieved. All instruments were then removed. Patient tolerated procedure well. Estimated blood loss 25 mL. DESTINY PADILLA M.D. [id number]
--- NOTE | 2018-12-13 15:39 | PATH ---
Surgical Pathology Report Patient Name: KRISH VILLEDA [facility]. Rec. #: [id number] /Age/Gender: 1990 (Age: 28) / F Account: [id number] Location: [facility] Taken: 12/12/2018 Received: 12/12/2018 Reported: 12/13/2018 Physicians: Destiny Padilla M.D. Specimen(s) Received PRODUCTS OF CONCEPTION Clinical History Retained products of conception Final Diagnosis PRODUCTS OF CONCEPTION: DEGENERATIVE CHORIONIC VILLI AND DECIDUAL TISSUE WITH ACUTE INFLAMMATION, CONSISTENT WITH PRODUCTS OF CONCEPTION. SEPARATE FRAGMENTS OF WEAKLY PROLIFERATIVE ENDOMETRIUM AND UNREMARKABLE ENDOCERVICAL TISSUE PRESENT. Electronically Signed Richard Sanderson M.D. Gross Description Received in formalin labeled "products of conception," is a 5.5 x 3.0 x 0.3 cm aggregate of olson soft tissue fragments. No definite villous tissue or somatic tissue is identified. The formalin is filtered and the specimen is entirely submitted in 3 cassettes. /12/12/2018 saudi12/12/2018
== END 2018-12-12 12:40 | disposition home or self-care (01) ==
LOC: JASU-SURG 06:23
PROVIDERS: ATTEND Obstetrics & Gynecology
PROC: 10D07Z8 Extraction of Products of Conception, Other, Via Natural or Artificial Opening (ICD-10-PCS; principal; 2018-12-12 08:00)
DX: O02.1 Missed abortion (principal)
CPT/HCPCS: 36415; 84703; 86850; 86900; 86901; 88305-TC; 94760

== ENCOUNTER 2019-05-29 00:23 | Emergency (ER) | payer OTHER ==
[2019-05-29 01:43] VITALS: BMI 29.2
--- NOTE | 2019-05-29 02:02 | PDOC ---
Attending Attestation - Resident Resident Name: Josh Benavides - ED Attending Attestation I have performed the following: I have examined & evaluated the patient, The case was reviewed & discussed with the resident, I agree w/resident's findings & plan - HPI HPI: 05/29/19 05:04 Pt comes with vag bleeding in . She states that she is 6 weeks by dates. She has never had a sono in this . She is [id number] States that she was over 3 mos when she spontaneously aborted. - Physicial Exam PE: 05/29/19 05:05 Afebrile VSS abd soft NT ND heart S1S2 RRR lungs CTA B no flank pain neuro no deficits. 05/29/19 06:43 vag exam: minimal blood in vault; os closed; no CMT normal exam - Medical Decision Making 05/29/19 04:47 HCG 17K O positive blood labs are normal 05/29/19 05:06 Pt soaked one pad 05/29/19 05:56 Pt will be signed out to the day team for (1) SONO pelvis/1st trimester and (2) follow UA Impression: threatened 05/29/19 05:57
--- NOTE | 2019-05-29 02:41 | PDOC ---
History of Present Illness - General Chief Complaint: Vaginal Bleeding Stated Complaint: ABD PAIN Time Seen by Provider: 05/29/19 01:52 History Source: Patient Exam Limitations: No Limitations - History of Present Illness Initial Comments: 05/29/19 06:59 28 F at 5 w 6 d GA presents to the emergency department with vaginal bleeding that began at 8 pm. There was one pad soaked since then and denies abdominal pain. The patient has not had OBGYN follow up and has not confirmed with US the . Denies fevers, chills, SOB, chest pain, abdominal pain, dysuria, hematuria, diarrhea, and leg pain/swelling. Past History - Past Medical History Allergies/Adverse Reactions: Allergies Allergy/AdvReac Type Severity Reaction Status Date / Time No Known Allergies Allergy Verified 12/12/18 07:25 Home Medications: Ambulatory Orders NK [No Known Home Medication] 05/29/19 Anemia: Yes Asthma: No Cancer: No Cardiac Disorders: No CVA: No COPD: No CHF: No Dementia: No Diabetes: No GI Disorders: No Disorders: No HTN: No Hypercholesterolemia: No Liver Disease: No Seizures: No Thyroid Disease: No - Reproductive History (#): 1 Para: 0 Therapeutic (s) & number: No Spontaneous : 1 - Immunization History Immunization Up to Date: (unknown) - Psycho Social/Smoking Cessation Hx Smoking History: Unknown if ever smoked Have you smoked in the past 12 months: No Information on smoking cessation initiated: No Hx Alcohol Use: No Drug/Substance Use Hx: No Substance Use Type: None Hx Substance Use Treatment: No *Physical Exam - Vital Signs Last Vital Signs Temp Pulse Resp BP Pulse Ox 98.2 F 81 15 137/71 100 05/29/19 01:40 05/29/19 01:40 05/29/19 01:40 05/29/19 01:40 05/29/19 01:40 - Physical Exam General Appearance: Yes: Nourished, Appropriately Dressed. No: Apparent Distress, Intoxicated HEENT: positive: EOMI, SUZANNE, Normal Voice, Symmetrical, Pharynx Normal, Hearing Grossly Normal. negative: Pale Conjunctivae, Scleral Icterus (R), Scleral Icterus (L), Muffled/Hoarse voice, Pharyngeal Erythema, Tonsillar Exudate, Tonsillar Erythema, Nasal Congestion, Rhinorrhea, Excessive drooling Neck: positive: Trachea midline, Supple. negative: Tender, Lymphadenopathy (R) , Lymphadenopathy (L), Tender lateral, Tender midline Respiratory/Chest: positive: Lungs Clear, Normal Breath Sounds. negative: Chest Tender, Respiratory Distress, Accessory Muscle Use, Crackles, Rales, Rhonchi, Stridor, Wheezing Cardiovascular: positive: Regular Rhythm, Regular Rate, S1, S2. negative: Systolic Murmur Female Pelvic Exam: positive: normal external exam, other (Pelvic exam shows closed os and and blood clot within the vaginal vault. no adnexal tenderness. no CMT) Gastrointestinal/Abdominal: positive: Normal Bowel Sounds, Flat, Soft. negative : Tender, Distended, Guarding, Rebound Lymphatic: negative: Adenopathy Musculoskeletal: positive: Normal Inspection. negative: CVA Tenderness, Vertebral Tenderness Extremity: positive: Normal Capillary Refill, Normal Inspection, Normal Range of Motion. negative: Tender, Swelling, Calf Tenderness Integumentary: positive: Normal Color, Dry, Warm. negative: Swelling, Ecchymosis Neurologic: positive: Fully Oriented, Alert, Normal Mood/Affect ED Treatment Course - LABORATORY CBC & Chemistry Diagram: 05/29/19 02:44 05/29/19 02:44 Medical Decision Making - Medical Decision Making Initial vitals: Initial Vital Signs Temp Pulse Resp BP Pulse Ox 98.2 F 81 15 137/71 100 05/29/19 01:40 05/29/19 01:40 05/29/19 01:40 05/29/19 01:40 05/29/19 01:40 Patient presents with vaginal bleeding with acute onset Will obtain cbc, cmp, type and screen, and UA Will obtain tvus to ascertain fetus status Laboratory Tests 05/29/19 05/29/19 05/29/19 02:44 02:44 02:44 WBC 8.0 RBC 4.23 Hgb 12.2 Hct 37.5 D MCV 88.8 MCH 28.8 MCHC 32.5 RDW 12.9 Plt Count 280 MPV 7.6 Absolute Neuts (auto) 5.6 Neutrophils % 70.0 Lymphocytes % 20.2 D Monocytes % 8.1 Eosinophils % 1.4 D Basophils % 0.3 Nucleated RBC % 0 PT with INR 11.80 INR 1.00 Sodium 138 Potassium 4.2 Chloride 107 Carbon Dioxide 24 Anion Gap 7 L BUN 12.6 Creatinine 0.7 Est GFR (CKD-EPI)AfAm 136.66 Est GFR (CKD-EPI)NonAf 117.91 Random Glucose 108 H Calcium 9.3 Total Bilirubin 0.4 AST 16 ALT 22 Alkaline Phosphatase 61 Total Protein 7.3 Albumin 3.7 Beta HCG, Quant 63157.4 Urine Color Urine Appearance Urine pH Ur Specific [place] Urine Protein Urine Glucose (UA) Urine Ketones Urine Blood Urine Nitrite Urine Bilirubin Urine Urobilinogen Ur Leukocyte Esterase Blood Type Antibody Screen 05/29/19 05/29/19 02:44 06:22 WBC RBC Hgb Hct MCV MCH MCHC RDW Plt Count MPV Absolute Neuts (auto) Neutrophils % Lymphocytes % Monocytes % Eosinophils % Basophils % Nucleated RBC % PT with INR INR Sodium Potassium Chloride Carbon Dioxide Anion Gap BUN Creatinine Est GFR (CKD-EPI)AfAm Est GFR (CKD-EPI)NonAf Random Glucose Calcium Total Bilirubin AST ALT Alkaline Phosphatase Total Protein Albumin Beta HCG, Quant Urine Color Yellow Urine Appearance Clear Urine pH 6.5 Ur Specific [place] 1.015 Urine Protein Negative Urine Glucose (UA) Negative Urine Ketones Negative Urine Blood 3+ H Urine Nitrite Negative Urine Bilirubin Negative Urine Urobilinogen 0.2 Ur Leukocyte Esterase Negative Blood Type O POSITIVE Antibody Screen Negative o+ no UTI noted on UA Patient was signed out to day team for pending TVUS Discharge - Discharge Information Problems reviewed: Yes Clinical Impression/Diagnosis: Vaginal bleeding - Follow up/Referral Referrals: Amadeo Lopez FNP [Primary Care Provider] - - Patient Discharge Instructions Patient Printed Discharge Instructions: Medications and , Managing Symptoms of , Ultrasound Exams During , Home and Clinic Tests, The Truth About Sex During Additional Instructions: Please schedule a follow up appointment with your OB and PCP in the next 3 to 5 days. Your ER workup is not complete without this follow up appointment. We have handed you a copy of your US report. Discuss this with your OB doc. Please come back to the ER with any new or worsening concerns. Thank you for coming to the [facility] ER. We hope you feel better soon! Print Language: LUXEMBOURGISH - Post Discharge Activity
[2019-05-29 02:57] LABS: BASO % 0.3 % (0-2.0); EOS % 1.4 % (0-4.5); HEMATOCRIT 37.5 % (32.4-45.2); HEMOGLOBIN 12.2 GM/dL (10.7-15.3); LYMPH % 20.2 % (8-40); MCH 28.8 pg (25.7-33.7); MCHC 32.5 g/dl (32.0-36.0); MEAN CELL VOLUME 88.8 fl (80-96); MEAN PLT VOLUME 7.6 fl (7.5-11.1); MONO % 8.1 % (3.8-10.2); PLATELET COUNT 280 K/MM3 (134-434); RBC 4.23 M/mm3 (3.60-5.2); RDW 12.9 % (11.6-15.6)
[2019-05-29 03:10] LABS: PROTHROMBIN TIME (PATIENT) 11.8 SEC (9.7-13.0)
[2019-05-29 03:39] LABS: ALBUMIN 3.7 g/dl (3.4-5.0); BILIRUBIN,TOTAL 0.4 mg/dL (0.2-1); BLOOD UREA NITROGEN 12.6 mg/dL (7-18); CALCIUM 9.3 mg/dL (8.5-10.1); CREATININE 0.7 mg/dL (0.55-1.3); POTASSIUM 4.2 mmol/L (3.5-5.1); TOT PROT 7.3 g/dl (6.4-8.2)
[2019-05-29 07:00] VITALS: BP 120/73; PULSE 86; TEMP 98.3
[2019-05-29 07:16] LABS: PH,URINE 6.5 (5.0-8.0); URINE APPEARANCE Clear; URINE BILIRUBIN Negative (NEGATIVE); URINE COLOR Yellow; URINE GLUCOSE (UA) Negative (NEGATIVE); URINE KETONE Negative (NEGATIVE); URINE LEUK ESTERASE Negative (NEGATIVE); URINE NITRITE Negative (NEGATIVE); URINE PROTEIN Negative (NEGATIVE); URINE UROBILINOGEN 0.2 mg/dL (0.2-1.0)
--- NOTE | 2019-05-29 09:49 | PDOC ---
*Physical Exam - Vital Signs Last Vital Signs Temp Pulse Resp BP Pulse Ox 98.3 F 86 17 120/73 99 05/29/19 06:59 05/29/19 06:59 05/29/19 06:59 05/29/19 06:59 05/29/19 06:59 - Physical Exam General Appearance: Yes: Nourished HEENT: positive: Normal Voice Neck: positive: Supple Respiratory/Chest: positive: Lungs Clear Cardiovascular: positive: Regular Rhythm, Regular Rate Vascular Pulses: Dorsalis-Pedis (R): 2+, Doralis-Pedis (L): 2+ Gastrointestinal/Abdominal: positive: Soft, Other (gravid uterus) Rectal Exam: positive: deferred Lymphatic: negative: Adenopathy Musculoskeletal: positive: Normal Inspection. negative: CVA Tenderness Extremity: positive: Normal Capillary Refill, Normal Inspection, Normal Range of Motion Integumentary: positive: Normal Color, Dry, Warm Neurologic: positive: Normal Mood/Affect ED Treatment Course - LABORATORY CBC & Chemistry Diagram: 05/29/19 02:44 05/29/19 02:44 - ADDITIONAL ORDERS Additional order review: Laboratory Results 05/29/19 05/29/19 05/29/19 06:22 02:44 02:44 PT with INR 11.80 INR 1.00 Sodium Potassium Chloride Carbon Dioxide Anion Gap BUN Creatinine Est GFR (CKD-EPI)AfAm Est GFR (CKD-EPI)NonAf Random Glucose Calcium Total Bilirubin AST ALT Alkaline Phosphatase Total Protein Albumin Beta HCG, Quant Urine Color Yellow Urine Appearance Clear Urine pH 6.5 Ur Specific [place] 1.015 Urine Protein Negative Urine Glucose (UA) Negative Urine Ketones Negative Urine Blood 3+ H Urine Nitrite Negative Urine Bilirubin Negative Urine Urobilinogen 0.2 Ur Leukocyte Esterase Negative Blood Type O POSITIVE Antibody Screen Negative 05/29/19 02:44 PT with INR INR Sodium 138 Potassium 4.2 Chloride 107 Carbon Dioxide 24 Anion Gap 7 L BUN 12.6 Creatinine 0.7 Est GFR (CKD-EPI)AfAm 136.66 Est GFR (CKD-EPI)NonAf 117.91 Random Glucose 108 H Calcium 9.3 Total Bilirubin 0.4 AST 16 ALT 22 Alkaline Phosphatase 61 Total Protein 7.3 Albumin 3.7 Beta HCG, Quant 33111.4 Urine Color Urine Appearance Urine pH Ur Specific [place] Urine Protein Urine Glucose (UA) Urine Ketones Urine Blood Urine Nitrite Urine Bilirubin Urine Urobilinogen Ur Leukocyte Esterase Blood Type Antibody Screen 05/29/19 02:44 RBC 4.23 MCV 88.8 MCHC 32.5 RDW 12.9 MPV 7.6 Neutrophils % 70.0 Lymphocytes % 20.2 D Monocytes % 8.1 Eosinophils % 1.4 D Basophils % 0.3 Medical Decision Making - Medical Decision Making Patient signed out to me from night team pending TVUS to confirm IUP TVUS: EXAM#: TYPE/EXAM: RESULT: [id number] US/TRANSVAGINAL US PREG . Pelvis ultrasound The pelvis ultrasound was performed with transabdominal and transvaginal images. The uterus is anteverted measuring 10.3 x 5.2 in sagittal and AP dimension. An intra-HI gestational sac with a yolk sac and pole are present. Yolk sac measures 3 x 2.2. [place]-rump length of the pole measured 3.8 mm compatible with 6 weeks of gestation. heart rate detected is 101 bpm. Right ovary measures 2.7 x 3.4 cm with a simple cyst/corpus tube cyst measuring 2.7 x 2.2 cm. Normal vascular flow. Left ovary measures 3.2 x 1.9 cm with a tiny echogenic focus measuring 2 mm that may represent a tiny calcific density. Normal vascular flow. There is no free fluid in the cul-de-sac IMPRESSION: Single live intrauterine with estimated gestational age of 6 weeks. Low heart rate of 101 bpm that may be due to size. Close follow-up is needed. Simple cyst/dominant follicle in the right ovary measuring 2.7 x 2.2 cm. Tiny echogenic focus in the left ovary measuring 2 mm which is nonspecific. Normal vascular flow in both ovaries. Dispo: Home wit OB fu - Patient handed copy of her TVUS read and instructed to speak about this with her OB in the next few days Discharge - Discharge Information Problems reviewed: Yes Clinical Impression/Diagnosis: IUP (intrauterine ), incidental Condition: Stable Disposition: HOME - Admission No - Follow up/Referral Referrals: Amadeo Lopez FNP [Primary Care Provider] - - Patient Discharge Instructions Patient Printed Discharge Instructions: Medications and , Managing Symptoms of , Ultrasound Exams During , Home and Clinic Tests, The Truth About Sex During Additional Instructions: Please schedule a follow up appointment with your OB and PCP in the next 3 to 5 days. Your ER workup is not complete without this follow up appointment. We have handed you a copy of your US report. Discuss this with your OB doc. Please come back to the ER with any new or worsening concerns. Thank you for coming to the [facility] ER. We hope you feel better soon! Print Language: BULGARIAN - Post Discharge Activity
== END 2019-05-29 10:45 | disposition home or self-care (01) ==
LOC: JER 00:23
DX: O26.891 Other specified pregnancy related conditions, first trimester (principal); O20.0 Threatened abortion; O34.81 Maternal care for other abnormalities of pelvic organs, first trimester; N83.291 Other ovarian cyst, right side; Z3A.01 Less than 8 weeks gestation of pregnancy
CPT/HCPCS: 36415; 76817-TC; 80053; 81003; 84702; 85025; 85610; 86850; 86900; 86901; 99284-25

== ENCOUNTER 2019-06-02 16:01 | Emergency (ER) | payer OTHER ==
[2019-06-02 16:39] VITALS: BMI 27.4
[2019-06-02] MEDS ORDERED: SODIUM CHLORIDE 1,000 ML IV STA (17:47)
[2019-06-02 19:35] LABS: BASO % 0.2 % (0-2.0); EOS % 1.5 % (0-4.5); HEMATOCRIT 38.7 % (32.4-45.2); HEMOGLOBIN 12.7 GM/dL (10.7-15.3); LYMPH % 30.8 % (8-40); MCHC 32.7 g/dl (32.0-36.0); MEAN CELL VOLUME 88.7 fl (80-96); MEAN PLT VOLUME 7.7 fl (7.5-11.1); NEUT % 59.5 % (42.8-82.8); PLATELET COUNT 331 K/MM3 (134-434); RBC 4.36 M/mm3 (3.60-5.2); RDW 12.8 % (11.6-15.6); WHITE BLOOD COUNT 6.3 K/mm3 (4.0-10.0)
--- NOTE | 2019-06-02 19:48 | PDOC ---
Attending Attestation - Resident Resident Name: Audrey Kat - ED Attending Attestation I have performed the following: I have examined & evaluated the patient, The case was reviewed & discussed with the resident, I agree w/resident's findings & plan - HPI HPI: 06/02/19 20:19 Pt has vag bleeding; she has had miscarriage in the past year and again was here a couple days ago with threatened . at that time 6 week IUP. Today more pain and vag bleeding. - Physicial Exam PE: 06/02/19 20:20 Open vaginal os; minimal blood in the vault. Pt has slight paiin. - Medical Decision Making 06/02/19 19:48 Hb/HCT normal 06/02/19 20:22 HCG is 26K; last time it was 17K; we expect that it should be >35K at this time. 06/02/19 20:23 We will call [employer] international student advisor. 06/02/19 20:34 Dr. Monaco wants pitocin and cytotec; NSS given, morphine and tylenol. Pt is O-positive; we will not repeat that. Pt is going to be observed; we will reevaluate. 06/02/19 22:14 Pt is stable. 06/02/19 23:52 Pt feels better; she appears calmer now; smiling. Pt has 3/4 bag of pitocin still running. Once it is through, she can be sent home with misoprostol
[2019-06-02] MEDS ORDERED: morphine CARPU-JECT 2 MG/1 ML DISP.SYRIN IVPUSH ONE (20:09)
[2019-06-02] MEDS ORDERED: ACETAMINOPHEN 1000 MG/100 ML VIAL (NON FORMULARY) IVPB ONE (20:10)
--- NOTE | 2019-06-02 20:11 | PDOC ---
History of Present Illness - General Chief Complaint: Vaginal Bleeding Stated Complaint: 6 W PREG/VAG BLEEDING Time Seen by Provider: 06/02/19 18:36 - History of Present Illness Initial Comments: Vani Talavera is a 28yo A1 woman, currently 6-7 wks , who presents with vaginal bleeding and cramping lower abdominal and back pain. She reports that she had been seen in the ED on Wednesday due to vaginal spotting and cramps, and at that time she had an ultrasound and was told that everything looked OK. The spotting stopped during the week but restarted around 3pm along with abdominal cramping, so she presented back to the ED. She states that while in the ED, she went to the bathroom and had heavy vaginal bleeding and worsening cramping, up to 7/10 in intensity. She passed several large clots in the ED. Ms Talavera states that she believes that she "lost the baby" as she had a miscarriage around 6 months ago. Past History - Past Medical History Allergies/Adverse Reactions: Allergies Allergy/AdvReac Type Severity Reaction Status Date / Time No Known Allergies Allergy Verified 06/02/19 16:39 Home Medications: Ambulatory Orders Misoprostol [Cytotec] 200 mcg PO TID #9 tablet 06/02/19 Anemia: Yes Asthma: No Cancer: No Cardiac Disorders: No CVA: No COPD: No CHF: No Dementia: No Diabetes: No GI Disorders: No Disorders: No HTN: No Hypercholesterolemia: No Liver Disease: No Seizures: No Thyroid Disease: No - Reproductive History (#): 1 Para: 0 Therapeutic (s) & number: No Spontaneous : 1 - Immunization History Immunization Up to Date: (unknown) - Psycho Social/Smoking Cessation Hx Smoking History: Never smoked Have you smoked in the past 12 months: No Information on smoking cessation initiated: No Hx Alcohol Use: No Drug/Substance Use Hx: No Substance Use Type: None Hx Substance Use Treatment: No Review of Systems - Review of Systems Comments:: General: No fevers, no chills, no weight or appetite change, no malaise HEENT: No changes in vision, no changes in hearing, no congestion, no sore throat CV: No chest pain, no palpitations, no LE edema Pulm: No SOB, no cough, no wheezing GI: No nausea or vomiting, no change in bowel habits, no melena : See HPI Musc: No back pain, no joint swelling, no recent injury Skin: No rash, no lesions, no erythema Endo: No excessive thirst, no heat/cold intolerance Heme: No unusual bruising or bleeding, no swollen glands Neuro: No syncope, no numbness/tingling, no focal weakness Vasc: No claudication Psych: No recent change in mood, no SI or HI *Physical Exam - Vital Signs Last Vital Signs Temp Pulse Resp BP Pulse Ox 98.5 F 94 H 17 121/73 100 06/02/19 16:32 06/02/19 16:32 06/02/19 16:32 06/02/19 16:32 06/02/19 16:32 - Physical Exam General: Comfortable, no acute distress HEENT: PERRL, EOMI, MMM, voice normal, normal neck ROM Cards: RRR, no murmur appreciated Pulm: Comfortable on room air, clear to auscultation bilaterally Abd: Soft, Mild lower abdominal TTP, nondistended : Normal external genitalia. Significant vaginal bleeding, dripping noted, w/ large clot removed from vaginal canal on initial placement of speculum. Os opened approximately 1cm. Ext: Atraumatic. No LE edema. ROM intact. WWP Skin: Normal color, no rashes or lesions Neuro: A&Ox3, CN grossly intact, normal speech, motor/sensory grossly intact and symmetric Psych: Mood appropriate to situation ED Treatment Course - LABORATORY CBC & Chemistry Diagram: 06/02/19 18:56 - ADDITIONAL ORDERS Additional order review: Laboratory Results 06/02/19 18:56 WBC 6.3 RBC 4.36 Hgb 12.7 Hct 38.7 MCV 88.7 MCH 29.0 MCHC 32.7 RDW 12.8 Plt Count 331 MPV 7.7 Absolute Neuts (auto) 3.8 Neutrophils % 59.5 Lymphocytes % 30.8 D Monocytes % 8.0 Eosinophils % 1.5 Basophils % 0.2 Nucleated RBC % 0 06/02/19 18:56 RBC 4.36 MCV 88.7 MCHC 32.7 RDW 12.8 MPV 7.7 Neutrophils % 59.5 Lymphocytes % 30.8 D Monocytes % 8.0 Eosinophils % 1.5 Basophils % 0.2 - Medications Given in the ED: ED Medications Discontinued Medications Generic Name Dose Route Start Last Admin Trade Name Kasia PRN Reason Stop Dose Admin Sodium Chloride 1,000 mls @ 1,000 mls/hr 06/02/19 17:47 06/02/19 18:41 Normal Saline - IV 06/02/19 18:46 1,000 mls/hr ASDIR STA Administration Medical Decision Making - Medical Decision Making 06/02/19 20:10 Vani Talavera is a 28yo A1 woman, currently 6-7 wks , who presents with heavy vaginal bleeding and cramping lower abdominal and back pain. - Heavy bleeding, os open, most likely inevitable - CBC, CMP, T&S, bHCG ordered shortly after arrival. Labs pending - TVUS ordered, but will cancel as os is open on exam - IV tylenol, IVF 06/02/19 20:28 - Spoke to Dr Robert. Recommending cytotec 400mcg, pitocin 20mg - Will continue to monitor 06/02/19 22:17 - Called back by Dr Robert. Recommending cytotec 200mcg TID for 3 days after discharge along with pain control. Will follow up in clinic within a week. 06/03/19 00:43 - Patient feeling improved - Discussed home care, return precautions and follow up. Will follow up with ob/ gyne on Wednesday. - Will remain in ED until oxytoxin completed. Dr Fam to follow for the remainder of her ED care. Discussed with Dr Edil Kat PGY2 Discharge - Discharge Information Problems reviewed: Yes Clinical Impression/Diagnosis: Miscarriage Condition: Stable - Additional Discharge Information Prescriptions: Misoprostol [Cytotec] 200 mcg PO TID #9 tablet - Follow up/Referral Referrals: Amadeo Lopez FNP [Primary Care Provider] - Patti Robert MD [Staff Physician] - - Patient Discharge Instructions Patient Printed Discharge Instructions: DI for Miscarriage Additional Instructions: Discharge Instructions: You were seen in the emergency department for vaginal bleeding during early . You are most likely having a miscarriage. You were given medication to help your body complete the miscarriage. You have been prescribed a medication called Cytotec. This should be taken every 8 hours for 3 days. This will help with the bleeding. Follow up with an supply chain coordinator early next week, Wednesday or Wednesday. You may see Dr Robert if you do not have an OB doctor that you see. Seek immediate care for worsening symptoms, heavy bleeding that soaks through 2 pads for 2-3 hours in a row, lightheadedness, fainting, difficulty breathing, or any other medical emergency. Instrucciones de descarga: La vieron en el departamento de emergencias por sangrado vaginal minerva el embarazo temprano. Es muy probable que tenga un aborto espontneo. Le dieron medicamentos para ayudar a bauer cuerpo a completar el aborto espontneo. Le mcbride recetado un medicamento llamado Cytotec. [place] debe tomarse cada 8 horas minerva 3 hubbard. [place] ayudar con el sangrado. Lucian un seguimiento con un obstetra a principios de la prxima semana, lunes o jasper. Puede roz al Dr. Robert si no tiene un mdico obstetra que atienda. Busque atencin inmediata para el empeoramiento de los sntomas, sangrado abundante que empapa 2 almohadillas minerva 2-3 horas seguidas, mareos, desmayos , dificultad para respirar o cualquier otra emergencia mdica. Print Language: ENGLISH - Post Discharge Activity
[2019-06-02] MEDS ORDERED: MISOPROSTOL 100 MCG TABLET PO ONE (20:27)
[2019-06-02] MEDS ORDERED: OXYTOCIN 20 UNITS in 0.9% NS 1000 ML INFUS.BAG IV ONE ×3 (20:27)
[2019-06-02] MEDS ORDERED: OXYTOCIN 20 UNITS in 0.9% NS 20 UNIT/1,000 ML INFUS.BAG IV SCH (22:30)
[2019-06-02 23:08] VITALS: TEMP 98.2
[2019-06-03 04:51] VITALS: BP 94/66; PULSE 73
== END 2019-06-03 04:40 | disposition home or self-care (01) ==
LOC: JER 16:01
PROC: 3E033NZ Introduction of Analgesics, Hypnotics, Sedatives into Peripheral Vein, Percutaneous Approach (ICD-10-PCS; principal; 2019-06-02)
PROC: 3E0337Z Introduction of Electrolytic and Water Balance Substance into Peripheral Vein, Percutaneous Approach (ICD-10-PCS; 2019-06-02)
DX: O03.9 Complete or unspecified spontaneous abortion without complication (principal)
CPT/HCPCS: 36415; 84702; 85025; 96361; 96365; 96375; 99283-25; J0131; J7030

== ENCOUNTER 2022-07-27 22:44 | Emergency (ER) | payer OTHER ==
[2022-07-27 22:53] VITALS: BP 114/78; PULSE 99; RESP 17; TEMP 99.2; BMI 31.1
[2022-07-27 23:13] LABS: HCG,QUALITATIVE URINE Positive
[2022-07-27 23:16] LABS: EPI CELLS 4 /uL (0-25.1); HYALINE CASTS 0 /uL (0-3.1); PH,URINE 7.5 (5.0-8.0); URINE APPEARANCE TURBID; URINE BACTERIA 436 /uL (0-1359); URINE BILIRUBIN NEGATIVE (NEGATIVE); URINE COLOR YELLOW; URINE GLUCOSE (UA) NEGATIVE (NEGATIVE); URINE KETONE NEGATIVE (NEGATIVE); URINE LEUK ESTERASE 1+ (NEGATIVE); URINE NITRITE NEGATIVE (NEGATIVE); URINE PROTEIN NEGATIVE (NEGATIVE); URINE RBC 36 /uL (0-23.9); URINE UROBILINOGEN 0.2 mg/dL (0.2-1.0); URINE WBC 154 /uL (0-25.8)
[2022-07-27] MEDS ORDERED: SODIUM CHLORIDE 0.9% 500 ML INFUS.BAG IV ONE (23:46)
[2022-07-27 23:58] LABS: EOS % 2.6 % (0-4.5); HEMATOCRIT 35.2 % (32.4-45.2); HEMOGLOBIN 11.6 GM/dL (10.7-15.3); LYMPH % 38.3 % (8-40); MCH 28.2 pg (25.7-33.7); MCHC 32.9 g/dl (32.0-36.0); MEAN CELL VOLUME 85.6 fl (80-96); MEAN PLT VOLUME 7.1 fl (7.5-11.1); MONO % 10.1 % (3.8-10.2); PLATELET COUNT 352 10^3/uL (134-434); RBC 4.12 M/mm3 (3.60-5.2); RDW 13.6 % (11.6-15.6); WHITE BLOOD COUNT 5.9 K/mm3 (4.0-10.0)
[2022-07-28 00:18] LABS: CALCIUM 8.6 mg/dL (8.5-10.1)
[2022-07-28 00:20] LABS: ALBUMIN 3.6 g/dl (3.4-5.0); BLOOD UREA NITROGEN 6.2 mg/dL (7-18)
[2022-07-28 00:22] LABS: CREATININE 0.8 mg/dL (0.55-1.3)
[2022-07-28 00:23] LABS: BILIRUBIN,TOTAL 0.3 mg/dL (0.2-1); TOT PROT 7.1 g/dl (6.4-8.2)
== END 2022-07-28 03:07 | disposition home or self-care (01) ==
LOC: JER 22:44
DX: O20.9 Hemorrhage in early pregnancy, unspecified (principal)
CPT/HCPCS: 36415; 76830-TC; 80053; 81003; 84702; 84703; 85025; 87086; 99284-25

== ENCOUNTER 2022-08-26 05:52 | Observation (INO) | payer OTHER ==
[2022-08-26 06:01] VITALS: BMI 31.1
[2022-08-26] MEDS ORDERED: ONDANSETRON 4 MG/2 ML VIAL IVPUSH ONE (06:02)
[2022-08-26] MEDS ORDERED: SODIUM CHLORIDE 0.9% 1000 ML INFUS.BAG IV ONE (06:02)
[2022-08-26] MEDS ORDERED: MAG HYDROX/AL HYDROX/SIMETH -MYLANTA- ORAL SUSPENSION PO ONE (06:02)
[2022-08-26] MEDS ORDERED: FAMOTIDINE 20 MG/50 ML IVPB 20 MG/50 ML MG IVPB ONE ×2 (06:02→06:14)
[2022-08-26] MEDS ORDERED: MAG HYDROX/AL HYDROX/SIMETH 30 ML UNIT-DOSE CUP ONE (06:14)
[2022-08-26] MEDS ORDERED: ONDANSETRON 4 MG/2 ML VIAL ONE (06:14)
[2022-08-26 07:17] LABS: BASO % 0.4 % (0-2.0); EOS % 3.7 % (0-4.5); HEMATOCRIT 35.2 % (32.4-45.2); HEMOGLOBIN 11.9 GM/dL (10.7-15.3); LYMPH % 53.2 % (8-40); MCH 28.8 pg (25.7-33.7); MCHC 33.7 g/dl (32.0-36.0); MEAN CELL VOLUME 85.5 fl (80-96); MEAN PLT VOLUME 8.2 fl (7.5-11.1); MONO % 11.4 % (3.8-10.2); NEUT % 31.3 % (42.8-82.8); PLATELET COUNT 340 10^3/uL (134-434); RBC 4.12 M/mm3 (3.60-5.2); RDW 13.1 % (11.6-15.6)
[2022-08-26 07:26] LABS: CHLORIDE 110 mmol/L (98-107); POTASSIUM 4.1 mmol/L (3.5-5.1); SODIUM 140 mmol/L (136-145)
[2022-08-26 07:28] LABS: CALCIUM 8.6 mg/dL (8.5-10.1)
[2022-08-26] MEDS ORDERED: ACETAMINOPHEN 1000 MG/100 ML BAG IVPB ONE ×2 (07:28→21:22)
[2022-08-26 07:29] LABS: ALBUMIN 3.6 g/dl (3.4-5.0); ANION GAP 5 MMOL/L (8-16); BLOOD UREA NITROGEN 13.9 mg/dL (7-18); CO2 25 mmol/L (21-32); GLUCOSE,RANDOM 122 mg/dL (74-106)
[2022-08-26] MEDS ORDERED: SODIUM CHLORIDE 1,000 ML IV STA (07:29)
[2022-08-26 07:32] LABS: CREATININE 0.8 mg/dL (0.55-1.3); SGOT/AST 20 U/L (15-37); SGPT/ALT 32 U/L (13-61)
[2022-08-26 07:33] LABS: TOT PROT 7.1 g/dl (6.4-8.2)
[2022-08-26 07:34] LABS: BILIRUBIN,TOTAL 0.3 mg/dL (0.2-1)
[2022-08-26 07:35] LABS: ALK PHOS 68 U/L (45-117)
[2022-08-26] MEDS ORDERED: ACETAMINOPHEN INJECTION 100 ML IVPB ONE (07:41)
[2022-08-26] MEDS ORDERED: morphine CARPU-JECT 2 MG/1 ML DISP.SYRIN IVPUSH ONE (09:51)
[2022-08-26] MEDS ORDERED: METOCLOPRAMIDE HCL INJECTION 10 MG/2 ML VIAL IVPUSH ONE (09:52)
[2022-08-26] MEDS ORDERED: METOCLOPRAMIDE HCL INJECTION 10 MG/2 ML VIAL ONE (10:11)
[2022-08-26] MEDS: KETOROLAC TROMETHAMINE 15 MG/ML VIAL IVPUSH PRN ×2 (11:25→17:53)
[2022-08-26] MEDS: LACTATED RINGERS SOLUTION 1,000 ML/1,000 ML INFUS.BAG IV SCH ×2 (11:26→19:50)
[2022-08-26 12:23] LABS: URINE APPEARANCE CLEAR; URINE BILIRUBIN NEGATIVE (NEGATIVE); URINE COLOR YELLOW; URINE GLUCOSE (UA) NEGATIVE (NEGATIVE); URINE KETONE NEGATIVE (NEGATIVE); URINE PROTEIN NEGATIVE (NEGATIVE)
[2022-08-26 12:24] LABS: EPI CELLS 12.7 /uL (0-25.1); URINE BACTERIA 3428.2 /uL (0-1359); URINE LEUK ESTERASE NEGATIVE (NEGATIVE); URINE NITRITE NEGATIVE (NEGATIVE); URINE RBC 238.2 /uL (0-23.9); URINE UROBILINOGEN 0.2 mg/dL (0.2-1.0); URINE WBC 50.2 /uL (0-25.8)
[2022-08-26] MEDS: TAMSULOSIN HCL 0.4 MG CAP PO SCH (15:41)
[2022-08-26] MEDS: CEFTRIAXONE 1 GM in DEXTROSE 5%-WATER - 50 ML IVPB SCH (15:43)
[2022-08-26] MEDS ORDERED: ONDANSETRON 4 MG/2 ML VIAL IVPUSH PRN (16:29)
[2022-08-27] MEDS: KETOROLAC TROMETHAMINE 15 MG/ML VIAL IVPUSH PRN ×2 (01:47→11:29)
[2022-08-27] MEDS ORDERED: ACETAMINOPHEN 500 MG TABLET (FP) PO ONE (05:34)
[2022-08-27] MEDS: LACTATED RINGERS SOLUTION 1,000 ML/1,000 ML INFUS.BAG IV SCH ×2 (05:46→10:53)
[2022-08-27] MEDS: TAMSULOSIN HCL 0.4 MG CAP PO SCH (08:20)
[2022-08-27 08:28] LABS: BASO % 0.2 % (0-2.0); EOS % 0.2 % (0-4.5); HEMATOCRIT 31.9 % (32.4-45.2); HEMOGLOBIN 10.8 GM/dL (10.7-15.3); MCH 28.7 pg (25.7-33.7); MCHC 33.9 g/dl (32.0-36.0); MEAN CELL VOLUME 84.5 fl (80-96); MEAN PLT VOLUME 8.4 fl (7.5-11.1); MONO % 6.6 % (3.8-10.2); PLATELET COUNT 262 10^3/uL (134-434); RBC 3.77 M/mm3 (3.60-5.2); RDW 13.2 % (11.6-15.6); WHITE BLOOD COUNT 12.8 K/mm3 (4.0-10.0)
[2022-08-27 08:38] LABS: POTASSIUM 3.5 mmol/L (3.5-5.1)
[2022-08-27 08:45] LABS: BLOOD UREA NITROGEN 11.5 mg/dL (7-18); CALCIUM 8.4 mg/dL (8.5-10.1)
[2022-08-27] MEDS: CEFTRIAXONE 1 GM in DEXTROSE 5%-WATER - 50 ML IVPB SCH (09:00)
[2022-08-27] MEDS: ACETAMINOPHEN 325 MG TABLET (FP) PO PRN ×3 (13:33→22:52)
[2022-08-27] MEDS ORDERED: SODIUM CHLORIDE 0.9% 500 ML INFUS.BAG IV ONE (14:08)
[2022-08-28] MEDS: KETOROLAC TROMETHAMINE 15 MG/ML VIAL IVPUSH PRN ×4 (01:21→23:49)
[2022-08-28] MEDS: ACETAMINOPHEN 325 MG TABLET (FP) PO PRN ×3 (02:52→22:07)
[2022-08-28] MEDS: CEFTRIAXONE 1 GM in DEXTROSE 5%-WATER - 50 ML IVPB SCH (09:21)
[2022-08-28] MEDS: TAMSULOSIN HCL 0.4 MG CAP PO SCH (09:21)
[2022-08-28 09:25] LABS: BASO % 0.3 % (0-2.0); EOS % 1.4 % (0-4.5); HEMATOCRIT 30.5 % (32.4-45.2); HEMOGLOBIN 10.1 GM/dL (10.7-15.3); LYMPH % 11.7 % (8-40); MCH 28.5 pg (25.7-33.7); MCHC 33.1 g/dl (32.0-36.0); MEAN CELL VOLUME 86.3 fl (80-96); MEAN PLT VOLUME 7.9 fl (7.5-11.1); MONO % 7.5 % (3.8-10.2); NEUT % 79.1 % (42.8-82.8); PLATELET COUNT 206 10^3/uL (134-434); RBC 3.53 M/mm3 (3.60-5.2); RDW 13.4 % (11.6-15.6); WHITE BLOOD COUNT 7.6 K/mm3 (4.0-10.0)
[2022-08-28 09:42] LABS: POTASSIUM 3.2 mmol/L (3.5-5.1)
[2022-08-28 09:44] LABS: CALCIUM 7.9 mg/dL (8.5-10.1)
[2022-08-28 09:45] LABS: BLOOD UREA NITROGEN 7.3 mg/dL (7-18)
[2022-08-28 09:48] LABS: CREATININE 0.7 mg/dL (0.55-1.3)
[2022-08-28] MEDS ORDERED: POTASSIUM CHLORIDE TABS 20 MEQ TABLET.ER (FP) PO ONE (10:44)
[2022-08-28] MEDS: LACTATED RINGERS SOLUTION 1,000 ML/1,000 ML INFUS.BAG IV SCH ×2 (11:32→21:00)
[2022-08-29] MEDS: LACTATED RINGERS SOLUTION 1,000 ML/1,000 ML INFUS.BAG IV SCH (05:40)
[2022-08-29] MEDS: KETOROLAC TROMETHAMINE 15 MG/ML VIAL IVPUSH PRN (05:41)
[2022-08-29 09:02] VITALS: RESP 18
[2022-08-29] MEDS: CEFTRIAXONE 1 GM in DEXTROSE 5%-WATER - 50 ML IVPB SCH (09:48)
[2022-08-29] MEDS: TAMSULOSIN HCL 0.4 MG CAP PO SCH (09:48)
[2022-08-29 14:44] VITALS: BP 120/73; PULSE 90; TEMP 99.1
[2022-09-02 22:06] LABS: WEIGHT 65 mg (.)
== END 2022-08-29 18:20 | disposition home or self-care (01) ==
LOC: JER 05:52 → JERBED 10:19 → UNDOADMOB 10:19 → INTOOBSV 10:19 → JERBED 10:40 → J6S 11:12 → JERBED 11:12 → J6S 11:12
PROVIDERS: ADMIT Internal Medicine; ATTEND Internal Medicine
PROC: 3E033NZ Introduction of Analgesics, Hypnotics, Sedatives into Peripheral Vein, Percutaneous Approach (ICD-10-PCS; principal; 2022-08-26)
PROC: 3E033GC Introduction of Other Therapeutic Substance into Peripheral Vein, Percutaneous Approach (ICD-10-PCS; 2022-08-26)
PROC: 3E0337Z Introduction of Electrolytic and Water Balance Substance into Peripheral Vein, Percutaneous Approach (ICD-10-PCS; 2022-08-26)
PROC: 3E03329 Introduction of Other Anti-infective into Peripheral Vein, Percutaneous Approach (ICD-10-PCS; 2022-08-26)
DX: N13.2 Hydronephrosis with renal and ureteral calculous obstruction (principal); N13.1 Hydronephrosis with ureteral stricture, not elsewhere classified; N23 Unspecified renal colic
CPT/HCPCS: 0241U-QW; 36415; 74177-TC; 76830-TC; 80048; 80053; 81003; 82360; 83690; 84702; 84703; 85025; 87040; 87086; 87186; 88300-TC; 93005; 93010; 96361; 96365; 96367; 96375; 96376; 99285-25; C9803-CS; G0378; Q9967; U0003; U0005

== ENCOUNTER 2022-12-08 03:50 | Day surgery (SDC) | payer OTHER ==
[2022-12-01 11:30] VITALS: BMI 30.7
[2022-12-08] MEDS ORDERED: LIDOCAINE HCL/PF 2% SDV 5ML VIAL ONE (07:14)
[2022-12-08 07:26] VITALS: RESP 18
[2022-12-08] MEDS ORDERED: MIDAZOLAM HCL 2 MG/2 ML SINGLE DOSE VIAL ONE ×2 (07:52→08:01)
[2022-12-08] MEDS ORDERED: oxyCODONE HCL 5 MG TABLET PO PRN (08:03)
[2022-12-08] MEDS ORDERED: ELECTROLYTE-148 SOLN 1,000 ML IV SCH (08:15)
[2022-12-08] MEDS ORDERED: ONDANSETRON 4 MG/2 ML VIAL IVPUSH PRN (09:52)
[2022-12-08] MEDS ORDERED: ONDANSETRON 4 MG/2 ML VIAL ONE (09:53)
[2022-12-08] MEDS ORDERED: ONDANSETRON 4 MG/2 ML VIAL IVPB ONE (09:55)
[2022-12-08 10:38] VITALS: BP 119/76; PULSE 85; TEMP 98.5
== END 2022-12-08 10:35 | disposition home or self-care (01) ==
LOC: JASU-SURG 03:50
PROVIDERS: ATTEND Urology
PROC: 0TF3XZZ Fragmentation in Right Kidney Pelvis, External Approach (ICD-10-PCS; principal; 2022-12-08 07:30)
DX: N20.0 Calculus of kidney (principal)
CPT/HCPCS: 81025

== ENCOUNTER 2023-11-02 22:22 | Emergency (ER) | payer OTHER ==
[2023-11-02 22:25] VITALS: BP 120/77; PULSE 90; RESP 18; TEMP 98.9; BMI 29.8
[2023-11-03 00:13] LABS: BASO % 0.5 % (0-2.0); EOS % 4.1 % (0-4.5); HEMATOCRIT 35.5 % (32.4-45.2); HEMOGLOBIN 11.9 GM/dL (10.7-15.3); MCH 28.9 pg (25.7-33.7); MCHC 33.5 g/dl (32.0-36.0); MEAN CELL VOLUME 86.3 fl (80-96); MEAN PLT VOLUME 7.4 fl (7.5-11.1); MONO % 8.7 % (3.8-10.2); NEUT % 50.7 % (42.8-82.8); PLATELET COUNT 287 10^3/uL (134-434); RBC 4.11 M/mm3 (3.60-5.2); RDW 13.6 % (11.6-15.6); WHITE BLOOD COUNT 6.5 K/mm3 (4.0-10.0)
[2023-11-03 00:30] LABS: EPI CELLS 29 /uL (0-25.1); HYALINE CASTS 0 /uL (0-3.1); URINE APPEARANCE CLOUDY; URINE BACTERIA >9,000 /uL (0-1359); URINE BILIRUBIN NEGATIVE (NEGATIVE); URINE COLOR YELLOW; URINE GLUCOSE (UA) NEGATIVE (NEGATIVE); URINE KETONE NEGATIVE (NEGATIVE); URINE LEUK ESTERASE 1+ (NEGATIVE); URINE NITRITE POSITIVE (NEGATIVE); URINE PROTEIN NEGATIVE (NEGATIVE); URINE RBC 16 /uL (0-23.9); URINE UROBILINOGEN 0.2 mg/dL (0.2-1.0); URINE WBC 113 /uL (0-25.8)
[2023-11-03 00:35] LABS: CALCIUM 8.1 mg/dL (8.5-10.1)
[2023-11-03 00:36] LABS: ALBUMIN 3.4 g/dl (3.4-5.0); BLOOD UREA NITROGEN 10.4 mg/dL (7-18)
[2023-11-03 00:39] LABS: CREATININE 0.7 mg/dL (0.55-1.3)
[2023-11-03 00:41] LABS: BILIRUBIN,TOTAL 0.3 mg/dL (0.2-1); TOT PROT 6.7 g/dl (6.4-8.2)
[2023-11-03 00:52] LABS: PROTHROMBIN TIME (PATIENT) 11.3 SEC (9.7-13.0)
[2023-11-03] MEDS ORDERED: AMOX TR/POT CLAV 875MG/125MG TABLETS (FP) ONE (01:49)
[2023-11-03] MEDS: AMOX TR/POT CLAV 875MG/125MG TABLETS (FP) PO ONE (01:53)
== END 2023-11-03 02:01 | disposition home or self-care (01) ==
LOC: JER 22:22
DX: O20.9 Hemorrhage in early pregnancy, unspecified (principal); Z3A.01 Less than 8 weeks gestation of pregnancy
CPT/HCPCS: 36415; 76817-TC; 80053; 81003; 84702; 85025; 85610; 86850; 86900; 86901; 87086; 87186; 99284-25

== ENCOUNTER 2023-11-05 10:39 | Emergency (ER) | payer OTHER ==
[2023-11-05 10:53] VITALS: BP 113/73; PULSE 91; RESP 17; TEMP 97.8; BMI 30.8
== END 2023-11-05 17:32 | disposition home or self-care (01) ==
LOC: JERFT 10:39
DX: O02.81 Inappropriate change in quantitative human chorionic gonadotropin (hCG) in early pregnancy (principal); Z3A.01 Less than 8 weeks gestation of pregnancy
CPT/HCPCS: 36415; 76817-TC; 84702; 99284-25

== ENCOUNTER 2023-11-12 22:56 | Emergency (ER) | payer OTHER ==
[2023-11-12 23:01] VITALS: BP 125/72; PULSE 89; RESP 18; TEMP 97; BMI 29.8
[2023-11-13] MEDS: ACETAMINOPHEN 1000 MG/100 ML BAG IVPB ONE (01:58)
[2023-11-13 02:07] LABS: BASO % 0.7 % (0-2.0); EOS % 3.7 % (0-4.5); HEMATOCRIT 38.4 % (32.4-45.2); HEMOGLOBIN 12.6 GM/dL (10.7-15.3); LYMPH % 39.4 % (8-40); MCH 28.6 pg (25.7-33.7); MCHC 32.9 g/dl (32.0-36.0); MEAN CELL VOLUME 86.7 fl (80-96); MONO % 8.5 % (3.8-10.2); NEUT % 47.7 % (42.8-82.8); PLATELET COUNT 354 10^3/uL (134-434); RBC 4.43 M/mm3 (3.60-5.2); RDW 13.9 % (11.6-15.6); WHITE BLOOD COUNT 6.1 K/mm3 (4.0-10.0)
[2023-11-13 02:10] LABS: EPI CELLS 9 /uL (0-25.1); HYALINE CASTS 0 /uL (0-3.1); URINE APPEARANCE CLEAR; URINE BACTERIA 8 /uL (0-1359); URINE BILIRUBIN NEGATIVE (NEGATIVE); URINE COLOR YELLOW; URINE GLUCOSE (UA) NEGATIVE (NEGATIVE); URINE KETONE NEGATIVE (NEGATIVE); URINE LEUK ESTERASE NEGATIVE (NEGATIVE); URINE NITRITE NEGATIVE (NEGATIVE); URINE PROTEIN NEGATIVE (NEGATIVE); URINE RBC 13 /uL (0-23.9); URINE UROBILINOGEN 0.2 mg/dL (0.2-1.0); URINE WBC 1 /uL (0-25.8)
[2023-11-13 02:33] LABS: POTASSIUM 4.1 mmol/L (3.5-5.1)
[2023-11-13 02:35] LABS: BLOOD UREA NITROGEN 10.8 mg/dL (7-18); CALCIUM 9.1 mg/dL (8.5-10.1)
[2023-11-13 02:38] LABS: CREATININE 0.8 mg/dL (0.55-1.3)
[2023-11-13 02:40] LABS: ALBUMIN 4.1 g/dl (3.4-5.0); BILIRUBIN,TOTAL 0.3 mg/dL (0.2-1); TOT PROT 7.7 g/dl (6.4-8.2)
== END 2023-11-13 04:55 | disposition home or self-care (01) ==
LOC: JER 22:56
PROC: 3E033NZ Introduction of Analgesics, Hypnotics, Sedatives into Peripheral Vein, Percutaneous Approach (ICD-10-PCS; principal; 2023-11-13)
DX: O20.9 Hemorrhage in early pregnancy, unspecified (principal); O26.891 Other specified pregnancy related conditions, first trimester; R10.30 Lower abdominal pain, unspecified; Z3A.01 Less than 8 weeks gestation of pregnancy
CPT/HCPCS: 36415; 76801-TC; 80053; 81003; 84702; 85025; 86850; 86900; 86901; 87086; 99284-25; J0131